=== PATIENT | female | born 1980 | race Caucasian/White ===

== ENCOUNTER → 2016-03-27 | Outpatient (CLI) | payer BC ==
[~2016-03-27] MED LIST: AC500T PO; HYDR1CAP2 PO; LOESTRIN 24 PO; MPR22TI TP; ONDN4T PO; PREN1TAB19 PO; PROBIOTIC1 EACH PO; SULF1TAB35 PO
--- NOTE | 2016-03-27 10:21 | Diagnostic Imaging Report ---
INDICATION: Right upper quadrant pain. EXAMINATION: KUB at 10:29 AM. FINDINGS: The bowel gas pattern is normal. There are no pathologic masses or calcifications seen. IMPRESSION: Negative abdomen. Dictated by: Dictated on workstation # [id number]
--- NOTE | 2016-03-27 11:02 | Diagnostic Imaging Report ---
PROCEDURE: US Gallbladder. TECHNIQUE: Multiple real-time grayscale images were obtained over the right upper quadrant in various projections. INDICATION: Right upper quadrant pain. FINDINGS The visualized portions of the pancreas appear unremarkable. The liver demonstrates no focal mass. The portal vein has hepatopetal flow. The gallbladder demonstrates no stones or wall thickening. No pericholecystic fluid. The CBD is 3 mm in caliber. The right kidney is 9.1 cm in length with no hydronephrosis or focal lesion. The sonographic Bullock sign is reportedly negative. No fluid collection in the upper right abdomen is seen. IMPRESSION: Unremarkable exam. Dictated by: Dictated on workstation # [id number]
--- NOTE | 2016-03-27 11:36 | Diagnostic Imaging Report ---
PROCEDURE: CT urinary tract, rule out kidney stone. TECHNIQUE: Multiple contiguous axial images were obtained through the abdomen and pelvis without the use of intravenous contrast. INDICATION: There are no previous CT abdomen/pelvis exams available for comparison. FINDINGS: There is no evidence for nephrolithiasis or urolithiasis and the kidneys do not appear to be obstructed. The plain film abdomen exam performed earlier today did show a small calcific density low in the pelvis on the right. This appears to lie just lateral to the rectosigmoid portion colon (image 126 of 153). This may represent a phlebolith. The urinary bladder is grossly unremarkable. The appendix is surgically absent. The uterus is prominent but not definitely enlarged. There is no pelvic mass or free fluid collection noted. The liver is homogeneous and not enlarged. The spleen, pancreas, adrenals, gallbladder, aorta, and inferior vena cava are unremarkable for an acute abnormality. The stomach is partially filled with fluid and consequently difficult to assess. The lung bases are clear. The bone windows show no evidence for a fracture or for a destructive lesion. IMPRESSION: 1. There is no evidence for nephrolithiasis or urolithiasis and the kidneys do not appear to be obstructed. 2. There is no acute abnormality in the abdomen or pelvis identified otherwise. 3. The appendix is surgically absent. Dictated by: Dictated on workstation # [id number]
== END ==
LOC: RAD 09:59
PROVIDERS: ATTEND Nurse Practitioner Family
DX: R10.11 Right upper quadrant pain (principal); R31.29 Other microscopic hematuria; Z87.442 Personal history of urinary calculi
CPT/HCPCS: 74000; 74176; 76705

== ENCOUNTER → 2018-08-26 | Outpatient (CLI) | payer BC ==
--- NOTE | 2018-08-26 14:18 | Diagnostic Imaging Report ---
INDICATION: Right foot injury and pain. TIME OF EXAMINATION: 11:38 AM. TECHNIQUE: Three views of the right foot were obtained. FINDINGS: The metatarsals are intact. No periosteal reaction or stress reaction is identified. The phalanges are intact. The midfoot and hindfoot are unremarkable apart from a small plantar calcaneal spur. There is a well-corticated osseous density arising from the navicular near the talonavicular joint. This is likely owing to an old fracture. IMPRESSION: Chronic appearance to the navicular. No acute bony abnormality is seen. Dictated by: Dictated on workstation # [id number]
== END ==
LOC: RAD 11:21
PROVIDERS: ATTEND Nurse Practitioner Family
DX: S99.921A Unspecified injury of right foot, initial encounter (principal)
CPT/HCPCS: 73630

== ENCOUNTER → 2020-05-28 | Outpatient (CLI) | payer BC ==
[2020-05-28 11:29] LABS: ABSOLUTE RETIC # 107 10e9/uL (24-90); BASOPHILS # (AUTO) 0.1 10^3/uL (0.0-0.1); BASOPHILS % (AUTO) 1 % (0-10); EOSINOPHILS # (AUTO) 0.2 10^3/uL (0.0-0.3); EOSINOPHILS % (AUTO) 3 % (0-10); HEMATOCRIT 43 % (35-52); LYMPHOCYTES # (AUTO) 2.9 10^3/uL (1.0-4.0); LYMPHOCYTES % (AUTO) 35 % (12-44); MEAN CORPUSCULAR HEMOGLOBIN 29 pg (25-34); MEAN CORPUSCULAR HGB CONC 33 g/dL (32-36); MEAN CORPUSCULAR VOLUME 89 fL (80-99); MEAN PLATELET VOLUME 8.3 fL (9.0-12.2); MONOCYTES # (AUTO) 0.5 10^3/uL (0.0-1.0); MONOCYTES % (AUTO) 6 % (0-12); NEUTROPHILS # (AUTO) 4.5 10^3/uL (1.8-7.8); NEUTROPHILS % (AUTO) 54 % (42-75); PLATELET COUNT 482 10^3/uL (130-400); RETICULOCYTE % 2.22 % (0.50-2.40); WHITE BLOOD COUNT 8.3 10^3/uL (4.3-11.0)
[2020-05-28 12:53] LABS: BASOPHILS % (MANUAL) 0 %; EOSINOPHILS % (MANUAL) 1 %; LYMPHOCYTES % (MANUAL) 35 %; MONOCYTES % (MANUAL) 4 %; NEUTROPHILS % (MANUAL) 59 %
[2020-05-28 12:54] LABS: ATYPICAL LYMPHOCYTES 1 %; RBC MORPH NORMAL
== END ==
LOC: LAB 11:06
PROVIDERS: ATTEND Nurse Practitioner Family
DX: D47.3 Essential (hemorrhagic) thrombocythemia (principal)
CPT/HCPCS: 36415; 85007; 85027; 85045; 85055